=== PATIENT | male | born 1955 | race Caucasian/White ===

== ENCOUNTER 2022-11-10 13:43 | Inpatient (IN) | payer MEDICARE, OTHER ==
[2022-11-10 14:47] LABS: #Neutrophils 8.7 10x3/uL (1.5-8.4); %Basophils 0.4 % (0.0-2.0); %Eosinophils 0.4 % (0.0-6.0); %Lymphocytes 10.6 % (18.0-47.0); %Monocytes 9.3 % (0.0-10.0); %Neutrophils 78.9 % (40.0-75.0); Hemoglobin 12.7 g/dL (13.5-17.5); Mean Corpuscular HGB CONC 32.6 g/dL (32.0-36.0); Mean Corpuscular Hemoglobin 31.4 pg (27.0-33.0); Mean Platelet Volume 10.3 fl (7.4-10.4); Platelet Count 264 10x3/uL (150-450); RBC Distribution Width 14.5 % (11.5-14.5); Red Blood Cell (RBC) Count 4.05 10x6/uL (4.32-5.72)
[2022-11-10] MEDS ORDERED: Morphine 4 MG/ML VIAL ONE (14:50)
[2022-11-10 15:01] LABS: ALT (SGPT) 8 U/L (8-55); AST (SGOT) 14 U/L (5-34); Albumin 3.9 g/dL (3.4-4.8); Alkaline Phosphatase 82 U/L (40-110); Anion Gap 14 mmol/L (10-20); BUN (Urea Nitrogen) 31 mg/dL (8.4-25.7); Bilirubin, Total 1.5 mg/dL (0.2-1.2); Calc. Creatinine Clearance 0 mL/min (70-130); Calcium 9.2 mg/dL (7.8-10.44); Carbon Dioxide 28 mmol/L (23-31); Chloride 97 mmol/L (98-107); Estimated GFR 41; Globulin 2.9 g/dL (2.4-3.5); Glucose 95 mg/dL (80-115); Protein, Total 6.8 g/dL (5.8-8.1); Sodium 134 mmol/L (136-145)
[2022-11-10] MEDS ORDERED: Ondansetron ODT 4 MG TAB PO PRN (16:34)
[2022-11-10] MEDS ORDERED: Acetaminophen 325 MG TAB PO PRN (16:34)
[2022-11-10] MEDS ORDERED: Ondansetron PF 4 MG/2 ML Vial IVP PRN (16:34)
[2022-11-10] MEDS ORDERED: Calcium Carbonate 500 MG ChewTAB PO PRN (16:34)
[2022-11-10] MEDS ORDERED: Senokot S 8.6-50 MG TAB PO PRN (16:34)
[2022-11-10] MEDS ORDERED: Furosemide 40 MG/4 ML VIAL SLOW IVP SCH (16:45)
[2022-11-10 17:47] LABS: Troponin I Less than 0.010 ng/mL (< 0.028)
[2022-11-10] MEDS ORDERED: Furosemide 40 MG/4 ML VIAL ONE (18:58)
[2022-11-10] MEDS ORDERED: Acetaminophen 325 MG TAB ONE (19:29)
[2022-11-10 20:50] LABS: Troponin I Less than 0.010 ng/mL (< 0.028)
[2022-11-10] MEDS ORDERED: Apixaban 5 MG TAB ONE (20:55)
[2022-11-10] MEDS ORDERED: Acetaminophen/Codeine 30-300mg Tablet ONE (20:56)
[2022-11-10] MEDS ORDERED: Tamsulosin HCl 0.4 MG CAP ONE (20:57)
[2022-11-10] MEDS: Apixaban 5 MG TAB PO SCH (21:12)
[2022-11-10] MEDS: Pregabalin 75 MG CAP PO SCH (21:12)
[2022-11-10] MEDS: Tamsulosin HCl 0.4 MG CAP PO SCH (21:13)
[2022-11-10] MEDS: Acetaminophen/Codeine 30-300mg Tablet PO PRN (21:13)
[2022-11-10] MEDS: Amiodarone 200 MG TAB PO SCH (21:14)
[2022-11-11 00:43] VITALS: BMI 35.7
[2022-11-11] MEDS: Acetaminophen/Codeine 30-300mg Tablet PO PRN (05:22)
[2022-11-11 05:58] LABS: #Monocytes 0.9 10x3/uL (0.0-1.1); #Neutrophils 6.2 10x3/uL (1.5-8.4); %Basophils 0.4 % (0.0-2.0); %Eosinophils 0.5 % (0.0-6.0); %Lymphocytes 11.6 % (18.0-47.0); %Neutrophils 76.1 % (40.0-75.0); Hemoglobin 11.7 g/dL (13.5-17.5); Mean Corpuscular HGB CONC 32.3 g/dL (32.0-36.0); Mean Corpuscular Hemoglobin 31.2 pg (27.0-33.0); Mean Corpuscular Volume 96.5 fl (81.2-95.1); Mean Platelet Volume 10.9 fl (7.4-10.4); Platelet Count 238 10x3/uL (150-450); RBC Distribution Width 14.4 % (11.5-14.5); Red Blood Cell (RBC) Count 3.75 10x6/uL (4.32-5.72); White Blood Cell (WBC) Count 8.1 10x3/uL (3.5-10.5)
[2022-11-11] MEDS ORDERED: Furosemide 20 MG/2 ML VIAL SLOW IVP SCH (06:00)
[2022-11-11 06:06] LABS: ALT (SGPT) 10 U/L (8-55); AST (SGOT) 11 U/L (5-34); Albumin 3.3 g/dL (3.4-4.8); Alkaline Phosphatase 74 U/L (40-110); Anion Gap 12 mmol/L (10-20); BUN (Urea Nitrogen) 32 mg/dL (8.4-25.7); Bilirubin, Total 1.3 mg/dL (0.2-1.2); Calc. Creatinine Clearance 74 mL/min (70-130); Calcium 9.5 mg/dL (7.8-10.44); Carbon Dioxide 30 mmol/L (23-31); Chloride 98 mmol/L (98-107); Estimated GFR 43; Globulin 3.1 g/dL (2.4-3.5); Glucose 85 mg/dL (80-115); Magnesium 1.9 mg/dL (1.6-2.6); Potassium 4.3 mmol/L (3.5-5.1); Protein, Total 6.4 g/dL (5.8-8.1); Sodium 136 mmol/L (136-145)
[2022-11-11] MEDS ORDERED: Atenolol 50 MG TAB ONE (08:32)
[2022-11-11] MEDS: Spironolactone 25 MG TAB PO SCH (08:47)
[2022-11-11] MEDS: Amiodarone 200 MG TAB PO SCH ×2 (08:47→20:32)
[2022-11-11] MEDS: Allopurinol 100 MG TAB PO SCH (08:47)
[2022-11-11] MEDS: Apixaban 5 MG TAB PO SCH ×2 (08:49→20:31)
[2022-11-11] MEDS: Pregabalin 75 MG CAP PO SCH ×2 (08:50→20:32)
[2022-11-11] MEDS: Thiamine 100 MG TAB PO SCH (08:50)
[2022-11-11] MEDS: Aspirin Chewable 81 MG TAB PO SCH (08:50)
[2022-11-11] MEDS ORDERED: Atenolol 50 MG TAB PO SCH (09:00)
[2022-11-11] MEDS ORDERED: Magnesium 2 GM/50 ML(in water) 2 GM in Premix Bag 1 BAG IVPB SCH (10:00)
[2022-11-11] MEDS: HYDROcodone/Acetaminophen 5/325 mg Tablet PO PRN ×2 (10:47→19:25)
[2022-11-11] MEDS: Senokot S 8.6-50 MG TAB PO SCH (20:32)
[2022-11-11] MEDS: Tamsulosin HCl 0.4 MG CAP PO SCH (20:32)
[2022-11-11] MEDS: Nystatin Powder 15 GM BOT TOP SCH (20:33)
[2022-11-11] MEDS: CEFAZOLIN 2 GM in Sodium Chloride 0.9% 100 ML IVPB SCH (20:33)
[2022-11-12] MEDS: HYDROcodone/Acetaminophen 5/325 mg Tablet PO PRN ×5 (05:45→21:01)
[2022-11-12 06:28] LABS: ALT (SGPT) 7 U/L (8-55); AST (SGOT) 13 U/L (5-34); Albumin 3.2 g/dL (3.4-4.8); Alkaline Phosphatase 70 U/L (40-110); Anion Gap 11 mmol/L (10-20); BUN (Urea Nitrogen) 34 mg/dL (8.4-25.7); Bilirubin, Total 0.9 mg/dL (0.2-1.2); Calc. Creatinine Clearance 48 mL/min (70-130); Calcium 9.1 mg/dL (7.8-10.44); Carbon Dioxide 30 mmol/L (23-31); Chloride 97 mmol/L (98-107); Estimated GFR 45; Globulin 3.1 g/dL (2.4-3.5); Glucose 105 mg/dL (80-115); Magnesium 2.1 mg/dL (1.6-2.6); Phosphorus 2.7 mg/dL (2.3-4.7); Potassium 4.4 mmol/L (3.5-5.1); Protein, Total 6.3 g/dL (5.8-8.1); Sodium 134 mmol/L (136-145)
[2022-11-12 07:17] LABS: #Eosinphils 0.1 10x3/uL (0.0-0.5); #Monocytes 0.8 10x3/uL (0.0-1.1); #Neutrophils 6.3 10x3/uL (1.5-8.4); %Basophils 0.4 % (0.0-2.0); %Eosinophils 0.9 % (0.0-6.0); %Lymphocytes 12.8 % (18.0-47.0); %Monocytes 9.4 % (0.0-10.0); Hemoglobin 11.3 g/dL (13.5-17.5); Mean Corpuscular Hemoglobin 31.7 pg (27.0-33.0); Mean Corpuscular Volume 95.8 fl (81.2-95.1); Mean Platelet Volume 11.3 fl (7.4-10.4); Platelet Count 242 10x3/uL (150-450); RBC Distribution Width 14.4 % (11.5-14.5); Red Blood Cell (RBC) Count 3.57 10x6/uL (4.32-5.72); White Blood Cell (WBC) Count 8.2 10x3/uL (3.5-10.5)
[2022-11-12] MEDS: CEFAZOLIN 2 GM in Sodium Chloride 0.9% 100 ML IVPB SCH ×2 (09:57→21:00)
[2022-11-12] MEDS: Nystatin Powder 15 GM BOT TOP SCH ×2 (09:59→21:02)
[2022-11-12] MEDS: Atenolol 25 MG TAB PO SCH (10:02)
[2022-11-12] MEDS: Pregabalin 75 MG CAP PO SCH ×2 (10:02→21:01)
[2022-11-12] MEDS: Senokot S 8.6-50 MG TAB PO SCH ×2 (10:03→22:02)
[2022-11-12] MEDS: Apixaban 5 MG TAB PO SCH ×2 (10:05→21:01)
[2022-11-12] MEDS: Amiodarone 200 MG TAB PO SCH (10:05)
[2022-11-12] MEDS: Thiamine 100 MG TAB PO SCH (10:05)
[2022-11-12] MEDS: Saccharomyces boulardii 250 MG CAP PO SCH (10:06)
[2022-11-12] MEDS: Spironolactone 25 MG TAB PO SCH (10:06)
[2022-11-12] MEDS: Furosemide 40 MG TAB PO SCH (10:06)
[2022-11-12] MEDS: Aspirin Chewable 81 MG TAB PO SCH (10:08)
[2022-11-12] MEDS: Allopurinol 100 MG TAB PO SCH (10:08)
[2022-11-12] MEDS ORDERED: Polyethylene Glycol 3350 17 GM Packet PO PRN (11:55)
[2022-11-12] MEDS ORDERED: Polyethylene Glycol 3350 17 GM Packet PO SCH (12:00)
[2022-11-12] MEDS: Sodium Chloride 0.65% Nasal 44 ML BOT EA NARE SCH ×2 (15:10→21:03)
[2022-11-12] MEDS: Tamsulosin HCl 0.4 MG CAP PO SCH (21:01)
[2022-11-13] MEDS: HYDROcodone/Acetaminophen 5/325 mg Tablet PO PRN ×5 (01:30→21:29)
[2022-11-13 05:44] LABS: Anion Gap 13 mmol/L (10-20); BUN (Urea Nitrogen) 34 mg/dL (8.4-25.7); Calc. Creatinine Clearance 81 mL/min (70-130); Calcium 9.3 mg/dL (7.8-10.44); Carbon Dioxide 28 mmol/L (23-31); Chloride 99 mmol/L (98-107); Estimated GFR 48; Glucose 105 mg/dL (80-115); Potassium 4.3 mmol/L (3.5-5.1); Sodium 136 mmol/L (136-145)
[2022-11-13 06:04] LABS: #Eosinphils 0.1 10x3/uL (0.0-0.5); #Neutrophils 7.4 10x3/uL (1.5-8.4); %Basophils 0.4 % (0.0-2.0); %Eosinophils 0.8 % (0.0-6.0); %Lymphocytes 10.2 % (18.0-47.0); %Monocytes 10.6 % (0.0-10.0); %Neutrophils 77.6 % (40.0-75.0); Mean Corpuscular HGB CONC 32.7 g/dL (32.0-36.0); Mean Corpuscular Hemoglobin 31.4 pg (27.0-33.0); Mean Platelet Volume 10.8 fl (7.4-10.4); Platelet Count 263 10x3/uL (150-450); RBC Distribution Width 14.3 % (11.5-14.5); White Blood Cell (WBC) Count 9.5 10x3/uL (3.5-10.5)
[2022-11-13] MEDS: CEFAZOLIN 2 GM in Sodium Chloride 0.9% 100 ML IVPB SCH ×2 (07:47→16:29)
[2022-11-13] MEDS: Polyethylene Glycol 3350 17 GM Packet PO SCH (07:48)
[2022-11-13] MEDS: Spironolactone 25 MG TAB PO SCH (07:50)
[2022-11-13] MEDS: Apixaban 5 MG TAB PO SCH ×2 (07:51→21:30)
[2022-11-13] MEDS: Amiodarone 200 MG TAB PO SCH (07:51)
[2022-11-13] MEDS: Allopurinol 100 MG TAB PO SCH (07:51)
[2022-11-13] MEDS: Atenolol 25 MG TAB PO SCH (07:52)
[2022-11-13] MEDS: Aspirin Chewable 81 MG TAB PO SCH (07:52)
[2022-11-13] MEDS: Furosemide 40 MG TAB PO SCH (07:52)
[2022-11-13] MEDS: Nystatin Powder 15 GM BOT TOP SCH (07:53)
[2022-11-13] MEDS: Pregabalin 75 MG CAP PO SCH ×2 (07:53→21:29)
[2022-11-13] MEDS: Saccharomyces boulardii 250 MG CAP PO SCH (07:54)
[2022-11-13] MEDS: Senokot S 8.6-50 MG TAB PO SCH ×2 (07:54→21:00)
[2022-11-13] MEDS: Sodium Chloride 0.65% Nasal 44 ML BOT EA NARE SCH ×2 (07:54→16:28)
[2022-11-13] MEDS: Thiamine 100 MG TAB PO SCH (07:55)
[2022-11-13] MEDS: Clindamycin/D5W 900 MG in Premix Bag 1 BAG IVPB SCH (21:30)
[2022-11-13] MEDS: Tamsulosin HCl 0.4 MG CAP PO SCH (21:30)
[2022-11-14] MEDS: HYDROcodone/Acetaminophen 5/325 mg Tablet PO PRN ×4 (03:14→21:44)
[2022-11-14] MEDS: Sodium Chloride 0.65% Nasal 44 ML BOT EA NARE SCH ×4 (03:16→21:39)
[2022-11-14] MEDS: CEFAZOLIN 2 GM in Sodium Chloride 0.9% 100 ML IVPB SCH ×3 (03:17→16:35)
[2022-11-14] MEDS: Nystatin Powder 15 GM BOT TOP SCH ×3 (03:52→21:39)
[2022-11-14] MEDS: Clindamycin/D5W 900 MG in Premix Bag 1 BAG IVPB SCH ×3 (06:43→21:36)
[2022-11-14] MEDS: Aspirin Chewable 81 MG TAB PO SCH (09:00)
[2022-11-14] MEDS: Apixaban 5 MG TAB PO SCH ×2 (09:00→21:38)
[2022-11-14] MEDS: Spironolactone 25 MG TAB PO SCH (09:00)
[2022-11-14] MEDS: Thiamine 100 MG TAB PO SCH (09:00)
[2022-11-14] MEDS: Allopurinol 100 MG TAB PO SCH (09:01)
[2022-11-14] MEDS: Polyethylene Glycol 3350 17 GM Packet PO SCH (09:02)
[2022-11-14] MEDS: Senokot S 8.6-50 MG TAB PO SCH ×2 (09:02→21:38)
[2022-11-14] MEDS: Pregabalin 75 MG CAP PO SCH ×2 (09:03→21:37)
[2022-11-14] MEDS: Amiodarone 200 MG TAB PO SCH (09:04)
[2022-11-14] MEDS: Furosemide 40 MG TAB PO SCH (09:04)
[2022-11-14] MEDS: Saccharomyces boulardii 250 MG CAP PO SCH (09:05)
[2022-11-14] MEDS: Atenolol 25 MG TAB PO SCH (09:06)
[2022-11-14] MEDS ORDERED: Furosemide 40 MG TAB PO SCH (15:30)
[2022-11-14] MEDS: Tamsulosin HCl 0.4 MG CAP PO SCH (21:38)
[2022-11-15] MEDS: CEFAZOLIN 2 GM in Sodium Chloride 0.9% 100 ML IVPB SCH ×4 (00:23→23:40)
[2022-11-15] MEDS: Clindamycin/D5W 900 MG in Premix Bag 1 BAG IVPB SCH ×3 (06:25→21:44)
[2022-11-15 07:20] LABS: #Eosinphils 0.1 10x3/uL (0.0-0.5); #Monocytes 0.9 10x3/uL (0.0-1.1); #Neutrophils 6.3 10x3/uL (1.5-8.4); %Basophils 0.4 % (0.0-2.0); %Eosinophils 1.5 % (0.0-6.0); %Lymphocytes 11.1 % (18.0-47.0); %Monocytes 10.7 % (0.0-10.0); %Neutrophils 75.9 % (40.0-75.0); Hemoglobin 11.1 g/dL (13.5-17.5); Mean Corpuscular HGB CONC 32.2 g/dL (32.0-36.0); Mean Corpuscular Hemoglobin 30.8 pg (27.0-33.0); Mean Corpuscular Volume 95.8 fl (81.2-95.1); Mean Platelet Volume 11.1 fl (7.4-10.4); Platelet Count 278 10x3/uL (150-450); White Blood Cell (WBC) Count 8.3 10x3/uL (3.5-10.5)
[2022-11-15 07:33] LABS: Anion Gap 14 mmol/L (10-20); BUN (Urea Nitrogen) 28 mg/dL (8.4-25.7); Calc. Creatinine Clearance 105 mL/min (70-130); Calcium 9.7 mg/dL (7.8-10.44); Carbon Dioxide 33 mmol/L (23-31); Chloride 94 mmol/L (98-107); Estimated GFR 66; Glucose 87 mg/dL (80-115); Potassium 4.3 mmol/L (3.5-5.1); Sodium 137 mmol/L (136-145)
[2022-11-15] MEDS: Nystatin Powder 15 GM BOT TOP SCH ×2 (09:00→20:55)
[2022-11-15] MEDS: Senokot S 8.6-50 MG TAB PO SCH ×2 (09:08→20:35)
[2022-11-15] MEDS: Amiodarone 200 MG TAB PO SCH (09:09)
[2022-11-15] MEDS: Pregabalin 75 MG CAP PO SCH ×2 (09:09→20:35)
[2022-11-15] MEDS: Atenolol 25 MG TAB PO SCH (09:10)
[2022-11-15] MEDS: Spironolactone 25 MG TAB PO SCH (09:10)
[2022-11-15] MEDS: Thiamine 100 MG TAB PO SCH (09:10)
[2022-11-15] MEDS: Aspirin Chewable 81 MG TAB PO SCH (09:10)
[2022-11-15] MEDS: Furosemide 40 MG TAB PO SCH ×2 (09:11→14:13)
[2022-11-15] MEDS: Polyethylene Glycol 3350 17 GM Packet PO SCH (09:15)
[2022-11-15] MEDS: Apixaban 5 MG TAB PO SCH ×2 (09:19→20:35)
[2022-11-15] MEDS: Sodium Chloride 0.65% Nasal 44 ML BOT EA NARE SCH ×3 (09:20→20:38)
[2022-11-15] MEDS: Saccharomyces boulardii 250 MG CAP PO SCH (09:25)
[2022-11-15] MEDS: HYDROcodone/Acetaminophen 5/325 mg Tablet PO PRN ×4 (09:25→21:43)
[2022-11-15] MEDS: Tamsulosin HCl 0.4 MG CAP PO SCH (20:35)
[2022-11-16] MEDS: HYDROcodone/Acetaminophen 5/325 mg Tablet PO PRN ×6 (01:47→21:41)
[2022-11-16 04:55] LABS: Anion Gap 13 mmol/L (10-20); BUN (Urea Nitrogen) 26 mg/dL (8.4-25.7); CRP (Inflammatory) 13.84 mg/dL (= or < 0.5); Calc. Creatinine Clearance 102 mL/min (70-130); Calcium 9.4 mg/dL (7.8-10.44); Carbon Dioxide 34 mmol/L (23-31); Chloride 93 mmol/L (98-107); Estimated GFR 60; Glucose 94 mg/dL (80-115); Potassium 4.4 mmol/L (3.5-5.1); Sodium 136 mmol/L (136-145)
[2022-11-16] MEDS: Clindamycin/D5W 900 MG in Premix Bag 1 BAG IVPB SCH ×3 (06:12→21:40)
[2022-11-16] MEDS: Nystatin Powder 15 GM BOT TOP SCH ×2 (08:32→18:35)
[2022-11-16] MEDS: Amiodarone 200 MG TAB PO SCH (08:32)
[2022-11-16] MEDS: Polyethylene Glycol 3350 17 GM Packet PO SCH (08:32)
[2022-11-16] MEDS: Aspirin Chewable 81 MG TAB PO SCH (08:32)
[2022-11-16] MEDS: CEFAZOLIN 2 GM in Sodium Chloride 0.9% 100 ML IVPB SCH ×2 (08:32→18:34)
[2022-11-16] MEDS: Senokot S 8.6-50 MG TAB PO SCH ×2 (08:33→21:37)
[2022-11-16] MEDS: Thiamine 100 MG TAB PO SCH (08:33)
[2022-11-16] MEDS: Spironolactone 25 MG TAB PO SCH (08:33)
[2022-11-16] MEDS: Apixaban 5 MG TAB PO SCH ×2 (08:33→21:37)
[2022-11-16] MEDS: Atenolol 25 MG TAB PO SCH (08:34)
[2022-11-16] MEDS: Furosemide 40 MG TAB PO SCH (08:34)
[2022-11-16] MEDS: Pregabalin 75 MG CAP PO SCH ×2 (08:34→21:37)
[2022-11-16] MEDS: Sodium Chloride 0.65% Nasal 44 ML BOT EA NARE SCH ×3 (08:35→21:42)
[2022-11-16] MEDS: Saccharomyces boulardii 250 MG CAP PO SCH (08:54)
[2022-11-16] MEDS: Furosemide 40 MG/4 ML VIAL SLOW IVP SCH (13:54)
[2022-11-16] MEDS: Tamsulosin HCl 0.4 MG CAP PO SCH (21:49)
[2022-11-16] MEDS ORDERED: cefTRIAXone\\ROCEPHIN 2 GM in Sodium Chloride 0.9% 100 ML IVPB SCH (22:00)
[2022-11-17] MEDS: HYDROcodone/Acetaminophen 5/325 mg Tablet PO PRN ×2 (05:24→14:49)
[2022-11-17] MEDS: Clindamycin/D5W 900 MG in Premix Bag 1 BAG IVPB SCH ×2 (05:25→14:49)
[2022-11-17] MEDS: Furosemide 40 MG/4 ML VIAL SLOW IVP SCH ×2 (05:26→14:36)
[2022-11-17 05:50] LABS: Anion Gap 15 mmol/L (10-20); BUN (Urea Nitrogen) 25 mg/dL (8.4-25.7); Calc. Creatinine Clearance 112 mL/min (70-130); Calcium 9.8 mg/dL (7.8-10.44); Carbon Dioxide 34 mmol/L (23-31); Chloride 93 mmol/L (98-107); Estimated GFR 67; Glucose 86 mg/dL (80-115); Potassium 4.8 mmol/L (3.5-5.1); Sodium 137 mmol/L (136-145)
[2022-11-17] MEDS: Atenolol 25 MG TAB PO SCH (08:25)
[2022-11-17] MEDS: Senokot S 8.6-50 MG TAB PO SCH (08:25)
[2022-11-17] MEDS: Spironolactone 25 MG TAB PO SCH (08:26)
[2022-11-17] MEDS: Aspirin Chewable 81 MG TAB PO SCH (08:26)
[2022-11-17] MEDS: Pregabalin 75 MG CAP PO SCH (08:27)
[2022-11-17] MEDS: Amiodarone 200 MG TAB PO SCH (08:28)
[2022-11-17] MEDS: Apixaban 5 MG TAB PO SCH (08:28)
[2022-11-17] MEDS: Sodium Chloride 0.65% Nasal 44 ML BOT EA NARE SCH ×2 (08:29→14:50)
[2022-11-17] MEDS: Thiamine 100 MG TAB PO SCH (08:29)
[2022-11-17] MEDS: Saccharomyces boulardii 250 MG CAP PO SCH (08:29)
[2022-11-17] MEDS: Nystatin Powder 15 GM BOT TOP SCH (08:30)
[2022-11-17] MEDS: Polyethylene Glycol 3350 17 GM Packet PO SCH (08:30)
[2022-11-17 14:08] VITALS: TEMP 98.4
[2022-11-17 17:36] VITALS: BP 101/59
== END 2022-11-17 18:00 | disposition home health service (06) | DRG 291 ==
LOC: CSHERS 13:43 → SUATTDRO 13:43 → CSHERHOLD 17:04 → CSHTELE 23:43
PROVIDERS: ADMIT Internal Medicine; ATTEND Family Medicine
DX: I13.0 Hypertensive heart and chronic kidney disease with heart failure and stage 1 through stage 4 chronic kidney disease, or unspecified chronic kidney disease (principal); I50.33 Acute on chronic diastolic (congestive) heart failure; J18.9 Pneumonia, unspecified organism; J96.01 Acute respiratory failure with hypoxia; E87.1 Hypo-osmolality and hyponatremia; L03.116 Cellulitis of left lower limb; L03.115 Cellulitis of right lower limb; N17.9 Acute kidney failure, unspecified; E78.5 Hyperlipidemia, unspecified; I48.91 Unspecified atrial fibrillation; E87.8 Other disorders of electrolyte and fluid balance, not elsewhere classified; N18.30 Chronic kidney disease, stage 3 unspecified; I87.8 Other specified disorders of veins; J45.909 Unspecified asthma, uncomplicated; G47.33 Obstructive sleep apnea (adult) (pediatric); E83.42 Hypomagnesemia; D53.9 Nutritional anemia, unspecified; Z79.899 Other long term (current) drug therapy; Z79.01 Long term (current) use of anticoagulants; Z79.82 Long term (current) use of aspirin
CPT/HCPCS: 36415; 71045; 80048; 80053; 83605; 83735; 83880; 84100; 84145; 84443; 84484; 85025; 85652; 86140; 93005; 93010; 93306; 94760; 94762; 96374; 97139; J0696; J1940; J2270; J3475; J3490